=== PATIENT | female | born 1945 | race Caucasian/White ===

== ENCOUNTER 2023-05-28 09:29 | Outpatient (OUT) | payer MEDICARE, OTHER, SELFPAY | END 2023-05-28 09:30 | disposition home or self-care (01) | PROVIDERS: PCP Podiatrist Foot & Ankle Surgery; Visit Provider Podiatrist Foot & Ankle Surgery | DX: I87.312 Chronic venous hypertension (idiopathic) with ulcer of left lower extremity (principal); L97.821 Non-pressure chronic ulcer of other part of left lower leg limited to breakdown of skin; S81.802A Unspecified open wound, left lower leg, initial encounter | CPT/HCPCS: G0463 ==

== ENCOUNTER 2023-06-25 09:23 | Outpatient (OUT) | payer MEDICARE, OTHER, SELFPAY | END 2023-06-25 09:24 | disposition home or self-care (01) | LOC: WC 09:23 | PROVIDERS: PCP Podiatrist Foot & Ankle Surgery; Visit Provider Podiatrist Foot & Ankle Surgery | DX: S81.802A Unspecified open wound, left lower leg, initial encounter (principal); I80.209 Phlebitis and thrombophlebitis of unspecified deep vessels of unspecified lower extremity; M10.9 Gout, unspecified; M13.80 Other specified arthritis, unspecified site; M79.671 Pain in right foot; M76.821 Posterior tibial tendinitis, right leg; I87.312 Chronic venous hypertension (idiopathic) with ulcer of left lower extremity; L97.822 Non-pressure chronic ulcer of other part of left lower leg with fat layer exposed | CPT/HCPCS: 11042 ==

== ENCOUNTER 2023-07-26 11:26 | Outpatient (OUT) | payer MEDICARE, OTHER, SELFPAY | END 2023-07-26 11:27 | disposition home or self-care (01) | LOC: WC 11:26 | PROVIDERS: PCP Podiatrist Foot & Ankle Surgery; Visit Provider Physician Assistant | DX: I87.312 Chronic venous hypertension (idiopathic) with ulcer of left lower extremity (principal); L97.822 Non-pressure chronic ulcer of other part of left lower leg with fat layer exposed | CPT/HCPCS: 11042; A6213 ==

== ENCOUNTER 2023-08-16 15:45 | Outpatient (OUT) | payer MEDICARE, OTHER, SELFPAY | END 2023-08-16 15:46 | disposition home or self-care (01) | LOC: WC 15:45 | PROVIDERS: PCP Podiatrist Foot & Ankle Surgery; Visit Provider Physician Assistant | DX: I87.312 Chronic venous hypertension (idiopathic) with ulcer of left lower extremity (principal); L97.822 Non-pressure chronic ulcer of other part of left lower leg with fat layer exposed | CPT/HCPCS: G0463 ==

== ENCOUNTER 2023-09-13 10:19 | Outpatient (OUT) | payer MEDICARE, OTHER, SELFPAY | END 2023-09-13 10:20 | disposition home or self-care (01) | LOC: WC 10:19 | PROVIDERS: PCP Podiatrist Foot & Ankle Surgery; Visit Provider Physician Assistant | DX: I87.312 Chronic venous hypertension (idiopathic) with ulcer of left lower extremity (principal); L97.822 Non-pressure chronic ulcer of other part of left lower leg with fat layer exposed | CPT/HCPCS: G0463 ==